=== PATIENT | female | born 1975 ===

== ENCOUNTER → 2018-12-08 20:44 | Outpatient (REF) | payer OTHER, SELFPAY ==
[2018-12-08 21:06] LABS: HEMOLYSIS < 15 (0-50)
[2018-12-08 21:14] LABS: Alanine Aminotransferase 20 IU/L (9-52); Albumin 4.4 g/dL (3.5-5.0); Albumin Globulin Ratio 1.4 (1.0-2.8); Alkaline Phosphatase 60 U/L (38-126); Aspartate Aminotransferase 20 IU/L (14-36); BUN Creatinine Ratio 16.7 (6-22); Bilirubin Total 0.7 mg/dL (0.2-1.3); Blood Urea Nitrogen 15 mg/dL (7-17); Calcium 9.6 mg/dL (8.4-10.2); Carbon Dioxide 26 mmol/L (22-32); Chloride 101 mmol/L (98-107); Estimated Glomerular Filt Rate > 60.0 mL/min (>60); Globulin 3.2 g/dL (1.7-4.1); Glucose 73 mg/dL (70-100); Potassium 4.3 mmol/L (3.4-5.1); Sodium 140 mmol/L (137-145); Total Protein 7.6 g/dL (6.3-8.2)
[2018-12-08 22:27] LABS: Luteinizing Hormone 3.95 mIU/mL
[2018-12-08 22:44] LABS: Testosterone 23.4 ng/dL (5.71-77.0)
[2018-12-11 17:49] LABS: Progesterone < 0.5 ng/mL
[2018-12-12 18:30] LABS: Estriol,Serum <0.10 ng/mL; Estrone 34 pg/mL
== END ==
LOC: LAB 20:44
PROVIDERS: Visit Provider Naturopath
DX: N92.6 Irregular menstruation, unspecified (principal)
CPT/HCPCS: 36415; 80053; 82627; 82671; 83001; 83002; 84144; 84270; 84403